=== PATIENT | male | born 1975 | race Caucasian/White ===

== ENCOUNTER → 2018-08-03 | Outpatient (CLI) | payer OTHER ==
--- NOTE | 2018-08-03 17:21 | PCVCIMAG ---
APPROVED REPORT Study performed: 08/03/2018 15:42:30 EXAM: Comprehensive 2D, Doppler, and color-flow Echocardiogram Patient Location: Echo lab Status: routine BSA: 2.08 HR: 55 bpmBP: 112/74 mmHg Rhythm: Bradycardia Other Information Study Quality: Good Indications Paroxysmal Atrial Fibrillation 2D Dimensions IVSd: 8.63 (7-11mm)LVOT Diam: 22.00 (18-24mm) LVDd: 44.34 mm PWd: 10.25 (7-11mm)Ascending Ao: 29.23 (22-36mm) LVDs: 30.12 (25-40mm) Left Atrium: 39.42 (27-40mm) Aortic Root: 29.23 mm LV Single Plane 4CH: 58.51 % LV Single Plane 2CH: 65.06 % Biplane EF: 61.8 % Volumes Left Atrial Volume (Systole) Single Plane 4CH: 48.91 mLSingle Plane 2CH: 43.89 mL LA ESV Index: 25.00 mL/m2 Aortic Valve AoV Peak Charles.: 1.23 m/s AO Peak Gr.: 6.01 mmHgLVOT Max P.60 mmHg LVOT Max V: 0.95 m/s LACY Vmax: 2.99 cm2 Mitral Valve E/A Ratio: 2.3 MV Decel. Time: 227.97 ms MV E Max Charles.: 0.88 m/s MV A Charles.: 0.39 m/s MV PHT: 66.11 ms IVRT: 55.36 ms TDI E/Lateral E': 7.33E/Medial E': 9.78 Medial E' Charles.: 0.09 m/s Lateral E' Charles.: 0.12 m/s Pulmonary Valve PV Peak Charles.: 0.88 m/sPV Peak Gr.: 3.13 mmHg AK End Vmax: 0.91 m/s Pulmonary Vein P Vein S: 0.42 m/sP Vein A: 0.20 m/s P Vein D: 0.56 m/sP Vein A Dur.: 72.7 msec P Vein S/D Ratio: 0.75 Tricuspid Valve TR Peak Charles.: 2.25 m/sRAP Estimate: 7.00 mmHg TR Peak Gr.: 20.19 mmHg PA Pressure: 27.00 mmHg Left Ventricle The left ventricle is normal size. There is normal LV segmental wall motion. There is normal left ventricular wall thickness. Left ventricular systolic function is normal. The left ventricular ejection fraction is within the normal range. LVEF is 60-65%. The left ventricular diastolic function is normal. Right Ventricle The right ventricle is normal size. The right ventricular systolic function is normal. Atria The left atrium size is normal. The right atrium size is normal. Aortic Valve The aortic valve is normal in structure. No aortic regurgitation is present. There is no aortic valvular stenosis. Mitral Valve The mitral valve is normal in structure. Trace mitral regurgitation. No evidence of mitral valve stenosis. Tricuspid Valve The tricuspid valve is normal in structure. Trace tricuspid regurgitation. Pulmonary artery pressure is 27 mmHg. Pulmonic Valve The pulmonary valve is normal in structure. Trace pulmonic regurgitation. Great Vessels The aortic root is normal in size. IVC is normal in size and collapses >50% with inspiration. Pericardium There is no pericardial effusion. <Conclusion> The left ventricle is normal size. LVEF is 60-65%. The left ventricular diastolic function is normal. The right ventricle is normal size. The left atrium size is normal. The aortic valve is normal in structure. Trace mitral regurgitation. Trace tricuspid regurgitation. Pulmonary artery pressure is 27 mmHg. The aortic root is normal in size. There is no pericardial effusion.
== END | disposition home or self-care (01) ==
LOC: PCVCIMAG 15:59
PROVIDERS: ATTEND Internal Medicine Cardiovascular Disease
DX: I48.0 Paroxysmal atrial fibrillation (principal)
CPT/HCPCS: 93306